=== PATIENT | female | born 2000 | race African-American/Black ===

== ENCOUNTER 2021-02-09 09:50 | Emergency (ER) | payer OTHER ==
[~2021-02-09] VITALS: Ht 154.9 cm; Wt 51.3 kg
[2021-02-09] MEDS ORDERED: NOHOMEMEDICATIONS (10:11)
[2021-02-09 10:20] LABS: ABSOLUTE NEUTROPHILS 4.9 thou/uL (1.4-8.2); BASOPHILS 0.3 % (0.0-2.0); HEMATOCRIT 38.2 % (37.0-47.0); HEMOGLOBIN 12.7 gm/dL (12.0-15.0); LYMPHOCYTES 14.2 % (24.0-44.0); MCH 31.8 pg (26.0-34.0); MCHC 33.4 g/dL (28.0-37.0); MCV 95.1 fL (80.0-100.0); MONOCYTES 4.9 % (1.0-8.0); PLATELET COUNT 189 thou/uL (150-400); POLYS 80.6 % (36.0-66.0); RBC 4.01 mil/uL (4.20-5.00); RDW 14.6 % (10.5-14.5); WBC 6.1 thou/uL (4.0-11.0)
[2021-02-09 10:39] LABS: URINE BILIRUBIN NEGATIVE (Negative); URINE BLOOD 3+ (Negative); URINE CLARITY CLEAR; URINE COLOR YELLOW; URINE GLUCOSE-RANDOM* NEGATIVE (Negative); URINE KETONES NEGATIVE (Negative); URINE LEUKOCYTES-REFLEX NEGATIVE (Negative); URINE NITRITE-REFLEX NEGATIVE (Negative); URINE PROTEIN (DIPSTICK) 1+ (Negative); URINE SPECIFIC GRAVITY 1.015 (1.005-1.035)
[2021-02-09 10:39] LABS: CALCIUM 8.5 mg/dL (8.5-10.1); CREATININE 0.8 mg/dL (0.6-1.0); POTASSIUM 4.1 mmol/L (3.5-5.1)
[2021-02-09 10:45] LABS: ALBUMIN 3.9 g/dL (3.4-5.0); TOTAL BILIRUBIN 0.3 mg/dL (0.2-1.0); TOTAL PROTEIN 7.4 g/dL (6.4-8.2)
[2021-02-09 10:51] LABS: BACTERIA-REFLEX 1-9 Few /HPF (None Seen); CASTS None Seen /LPF (None Seen); CRYSTALS None Seen /LPF (None Seen); SQUAMOUS 4-10 Moderate /LPF (0-3); URINE RBC >20 Many /HPF (NONE SEEN); URINE WBC-REFLEX 0-5 Rare /HPF (0-5)
[2021-02-09] MEDS ORDERED: ZOFRAN ODT4 MG PO (11:02)
[2021-02-09 11:12] VITALS: BP 110/63
== END 2021-02-09 11:15 | disposition home or self-care (01) ==
LOC: ER 09:50
PROVIDERS: Emergency Medicine
DX: R11.10 Vomiting, unspecified (principal); R10.84 Generalized abdominal pain; Z98.890 Other specified postprocedural states

== ENCOUNTER 2021-03-16 12:58 | Emergency (ER) | payer OTHER ==
[~2021-03-16] VITALS: Ht 154.9 cm; Wt 52.2 kg
--- NOTE | ~2021-03-16 | EMS ---
[facility] [address] [place] [address] EMS Patient Care Report Name: CARLINE MARQUEZ Room #: DEP YOMI Sr#: [id number] Admission: 03/16/21 Attend Phys: Discharge: 03/16/21 Date of : [birth year] Report #: [id number] THIS REPORT FOR: //name// Report Transmitted: 03/16/2021 23:15 EMS Care Summary [place], [place]/[facility] Incident [id number] @ 03/16/2021 12:27 Incident Location [address] [place] [id number] Patient CARLINE MARQUEZ Female, 21 Years 2000 Patient Address [address] [place] [id number] Patient History None Reported, Patient Allergies No known allergies, Patient Medications None Reported, Chief Complaint PT SATES THAT PT FEELS WEAK Disposition Transported No Lights/[place] Dispatch Reason Heat/Cold Exposure Transported To [facility] Narrative [PT STATES THAT PT FEELS LIGHT HEADED AND WEAK. PT DENIE LOC. PT ADMITS TO DRINKING LAST NIGHT. PT STATES THAT PT WAS COOKING IN THE KITCHEN. PT DENEIS NECK OR BACK PAIN. PT HAS NO OTHER OBVIOUS ABNORMALITIES. [facility] [address] [place] [address] EMS Patient Care Report Name: CARLINE MARQUEZ Room #: MJ Sr#: [id number] Admission: 03/16/21 Attend Phys: Discharge: 03/16/21 Date of : [birth year] Report #: [id number] PT WAS FOUND WALKING TO THE AMBULANCE. PT SPOKE IN FULL AND COMPLTE SENTNECES. PT IS ABLE TO STAND AND PIVOT TO GET ONTO EMS COT. PT HAS NO OTHER OBVIOUS ABNORMALITIES. Initial Vitals @12:48P: 86,R: 18,Pain: 0/10,GCS: 15,CO: 4,SpO2: 99, @12:38P: 83,R: 18,BP: 129/87,Pain: 0/10,GCS: 15,Glucose: 90,SpO2: 98,Revised Trauma: 12, Assessments @12:36MENTAL:Person Oriented,Time Oriented,Place Oriented,Event Oriented,SKIN:HEENT:Eyes: Left Pupil: 4-mm,Eyes: Right Pupil: 4-mm,Head/Face: No Abnormalities,Neck/Airway: No Abnormalities,LUNG SOUNDS:General: Vomiting,General: Nausea,ABDOMEN:General: Vomiting,General: Nausea,PELVIS//GI:EXTREMITIES:Capillary Refill: Right Upper: < 2 Sec,Left Arm: No Abnormalities,Right Arm: No Abnormalities,Left Leg: No Abnormalities,Right Leg: No Abnormalities,PULSE:Radial: 2+ Normal,NEURO: Impression Nausea Procedures @12:35ALS AssessmentSucceeded@12:37Saline Lock 100cc (18 ga) Site: Antecubital-LeftResponse: UnchangedSucceeded@12:363-Lead ECGResponse: UnchangedSucceeded Timeline 12:25,Call Received 12:25,Dispatch Notified 12:27,Dispatched 12:28,En Route 12:34,On Scene 12:35,At Patient 12:35,ALS Assessment,Succeeded, 12:36,3-Lead ECG,Response: UnchangedSucceeded, 12:37,Saline Lock 100cc 18 ga Site: Antecubital-Left,Response: UnchangedSucceeded, 12:38,BP: 129/87 M,PULSE: 83,RR: 18 R,SPO2: 98 Ox,ETCO2: ,B,PAIN: 0,GCS: 15, 12:46,Depart Scene 12:48,BP: / M,PULSE: 86,RR: 18 R,SPO2: 99 Ox,ETCO2: ,BG: ,PAIN: 0,GCS: 15, 12:50,At Destination 12:59,Call Closed Disclaimer [address] [address] EMS Patient Care Report Name: [facility] Room #: DEP Orin#: [id number] Admission: 03/16/21 Attend Phys: Discharge: 03/16/21 Date of : [birth year] Report #: [id number] v1.1 Copyright 2020 [employer] This EMS Care Summary contains data elements from the applicable legal record (which may be displayed differently). It is designed to provide pertinent information for the following purposes: continuity of care, clinical quality, and state data reporting. The complete legal record is available to ED staff and administrators of the receiving hospital in [employer]'s Patient Tracker. All data is provided "as is."
[~2021-03-16 12:58] MED LIST: NOHOMEMEDICATIONS; ZOFRAN ODT4 MG PO
[2021-03-16 13:22] LABS: ABSOLUTE NEUTROPHILS 4.8 thou/uL (1.4-8.2); BASOPHILS 0.6 % (0.0-2.0); EOSINOPHILS 0.6 % (0.0-3.0); HEMOGLOBIN 13.7 gm/dL (12.0-15.0); LYMPHOCYTES 19.8 % (24.0-44.0); MCH 31.9 pg (26.0-34.0); MCHC 33.4 g/dL (28.0-37.0); MCV 95.5 fL (80.0-100.0); MONOCYTES 5.7 % (1.0-8.0); PLATELET COUNT 210 thou/uL (150-400); POLYS 73.3 % (36.0-66.0); RBC 4.29 mil/uL (4.20-5.00); WBC 6.6 thou/uL (4.0-11.0)
[2021-03-16 13:39] LABS: CREATININE 0.8 mg/dL (0.6-1.0)
[2021-03-16 13:56] LABS: ALBUMIN 3.8 g/dL (3.4-5.0); TOTAL BILIRUBIN 0.3 mg/dL (0.2-1.0)
[2021-03-16 14:07] LABS: URINE BILIRUBIN NEGATIVE (Negative); URINE BLOOD NEGATIVE (Negative); URINE CLARITY CLEAR; URINE COLOR YELLOW; URINE GLUCOSE-RANDOM* NEGATIVE (Negative); URINE KETONES NEGATIVE (Negative); URINE LEUKOCYTES-REFLEX NEGATIVE (Negative); URINE NITRITE-REFLEX NEGATIVE (Negative); URINE PROTEIN (DIPSTICK) NEGATIVE (Negative); URINE SPECIFIC GRAVITY 1.025 (1.005-1.035); URINE UROBILINOGEN 0.2 E.U./dl (0.2-1.0)
[2021-03-16 14:51] VITALS: BP 122/62
== END 2021-03-16 14:51 | disposition home or self-care (01) ==
LOC: ER 12:58
PROVIDERS: Emergency Medicine
DX: R11.2 Nausea with vomiting, unspecified (principal)